=== PATIENT | male | born 1940 | race Caucasian/White ===

== ENCOUNTER 2018-05-26 07:55 | Observation (INO) ==
--- NOTE | 2018-05-26 08:32 | ED ---
HPI General Chief Complaint: Abdominal Pain Stated Complaint: Chest Pain x2wks on/off Hx RH Time Seen by Provider: 05/26/18 08:05 History of Present Illness HPI narrative: Is a 77-year-old male with a history of Sjogren's, rheumatoid arthritis, chronic pancreatitis, coronary artery disease, presents today with complaints of epigastric and chest pain on and off times 2 weeks. Patient states is been coming and going for the last 2 weeks. He reports associated nausea. He reports that the pain feels similar to the pain that he has with his pancreatitis. He reports some dyspnea. There is some chills with no fever. He denies any diaphoresis. He works as a [employer] and states that it seems to be worse when he is active. Related Data Home Medications Medication Instructions Recorded Confirmed allopurinol 100 mg PO DAILY 05/26/18 05/26/18 folic acid 1 mg PO DAILY 05/26/18 05/26/18 [id number] [Creon] 3 cap PO TID 05/26/18 05/26/18 losartan [Cozaar] 100 mg PO DAILY 05/26/18 05/26/18 methotrexate (PF) mg SUBCUT QWEEK 05/26/18 oxycodone 20 mg PO Q4-6H PRN 05/26/18 05/26/18 Allergies Allergy/AdvReac Type Severity Reaction Status Date / Time antibiotics Allergy Abdominal Uncoded 05/26/18 08:38 Pain Review of Systems ROS: all other systems reviewed are negative Constitutional Reports chills and Denies fever(s) Eyes Reports dry eyes (From Sjogren's) ENT Reports dry mouth and Denies sore throat Cardiovascular Reports chest pain (Lower chest bilaterally), Denies chest pain with activity and Denies palpitations Respiratory Denies chest congestion, Denies cough and Reports dyspnea Gastrointestinal Reports abdominal pain (Epigastric), Reports nausea and Denies vomiting Genitourinary Reports system reviewed and no additional complaints, except as docu Musculoskeletal Reports back pain and Reports other (Chronic pain from rheumatoid arthritis) Neurologic Reports system reviewed and no additional complaints, except as docu [facility] Medical History Medical History GERD (gastroesophageal reflux disease) (Acute) Hypertension (Acute) Myocardial infarct, old (Acute) Panarteritis (Acute) RA (rheumatoid arthritis) (Acute) Skin cancer (Acute) Surgical History Surgical History H/O neck surgery (Acute) Hx of cholecystectomy (Acute) Social History Social History Substance History: No History of Abuse Smoking Status: Former smoker How Often Do You Have a Drink Containing Alcohol: Never Recent Travel in [facility] [place] within the Last 8 Weeks: No Recent Out of Country Travel within the Last 8 Weeks: No Immunization History Tetanus Immunization: <5 Years Hx Influenza Vaccine This Season: No Exam Narrative Exam Narrative: GENERAL: Well-developed well-nourished male in no acute respiratory distress. SKIN: Focused skin assessment warm/dry. HEAD: Atraumatic. Normocephalic. EYES: Pupils equal and round. No scleral icterus. No injection or drainage. ENT: No nasal bleeding or discharge. Mucous membranes pink and moist. NECK: Trachea midline. Supple. CARDIOVASCULAR: Regular rate and rhythm. No murmur appreciated. RESPIRATORY: No accessory muscle use. Clear to auscultation. Breath sounds equal bilaterally. GASTROINTESTINAL: Abdomen soft, nondistended. Patient does have tenderness in his epigastrium. There is no rebound. MUSCULOSKELETAL: No obvious deformities. No clubbing. No cyanosis. No edema. NEUROLOGICAL: Awake and alert. No obvious cranial nerve deficits. Motor grossly within normal limits. Normal speech. Course Initial Documented Vital Signs Temperature 98.7 F 05/26/18 07:58 Pulse Rate 96 H 05/26/18 07:58 Respiratory Rate 18 05/26/18 07:58 Blood Pressure 170/94 H 05/26/18 07:58 Pulse Oximetry 99 05/26/18 07:58 Last Documented Vital Signs Temperature 98.7 F 05/26/18 07:58 Pulse Rate 81 05/26/18 10:46 Respiratory Rate 18 05/26/18 10:46 Blood Pressure 169/88 H 05/26/18 10:46 Pulse Oximetry 96 05/26/18 09:45 Medical Decision Making [facility] Narrative Medical decision making narrative: 77-year-old male history of chronic pancreatitis, Sjogren's disease, rheumatoid arthritis, presents today with complaints of abdominal pain and lower chest pain. Patient has an elevated lipase consistent with early pancreatitis. Cardiac enzymes are within normal limits. EKG showed no evidence of acute ST elevation or depression. The patient will be admitted for IV fluids and bowel rest. Case was discussed with Dr. Jaya Fernandez, covering for Dr. Jignesh Srivastava, patient's primary physician physician. Medical Screen Exam Complete: Yes Emergency Medical Condition: Yes Differential Diagnosis Differential Diagnosis: Pancreatitis versus ACS versus rheumatoid arthritis. Lab Data Result diagrams: 05/26/18 08:53 05/26/18 08:53 Lab Results 05/26/18 05/26/18 05/26/18 Range/Units 08:53 08:53 08:53 CBC w Diff Auto diff final WBC 10.2 (4.0-11.0) th/mm3 RBC 4.14 L (4.50-5.90) mil/mm3 Hgb 14.4 (13.0-17.0) gm/dL Hct 42.3 (39.0-51.0) % MCV 102.3 H (80.0-100.0) fL MCH 34.9 H (27.0-34.0) pg MCHC 34.1 (32.0-36.0) % RDW 12.9 (11.6-17.2) % Plt Count 177 (150-450) th/mm3 MPV 7.8 (7.0-11.0) fL Neut % (Auto) 56.5 (16.0-70.0) % Lymph % (Auto) 23.3 (9.0-44.0) % [place] % (Auto) 13.9 H (0.0-8.0) % Eos % (Auto) 2.5 (0.0-4.0) % Baso % (Auto) 3.8 H (0.0-2.0) % Neut # (Auto) 5.7 (1.8-7.7) th/mm3 Lymph # (Auto) 2.4 (1.0-4.8) th/mm3 [place] # (Auto) 1.4 H (0.0-0.9) th/mm3 Eos # (Auto) 0.3 (0.0-0.4) th/mm3 Baso # (Auto) 0.4 H (0.0-0.2) th/mm3 WBC Differential . Differential Comment . PT 10.0 (9.8-11.6) sec INR 1.0 Ratio APTT 24.7 (24.3-30.1) sec Sodium 136 (136-145) meq/L Potassium 3.6 (3.5-5.1) meq/L Chloride 99 (98-107) meq/L Carbon Dioxide 27.6 (21.0-32.0) meq/L Anion Gap 9 (5-15) meq/L BUN 12 (7-18) mg/dL Creatinine 1.10 (0.60-1.30) mg/dL Estimated GFR 65 L (>89) mL/min Random Glucose 140 H (74-106) mg/dL Calcium 8.0 L (8.5-10.1) mg/dL Total Bilirubin 0.7 (0.2-1.0) mg/dL AST 28 (15-37) U/L ALT 51 (12-78) U/L Alkaline Phosphatase 52 (45-117) U/L Total Creatine Kinase 118 (39-308) U/L CK-MB (CK-2) 1.6 (0.5-3.6) ng/mL Troponin I Less than 0.02 L (0.02-0.05) ng/mL Total Protein 7.6 (6.4-8.2) g/dL Albumin 3.3 L (3.4-5.0) g/dL Lipase 427 H (73-393) U/L Ur Collection Type Urine Color (Yellw/Straw) Urine Clarity (Clear) Urine pH (5.0-8.5) Ur Specific [place] (1.002-1.035) Urine Protein (Neg-Trace) mg/dL Urine Glucose (UA) (Negative) mg/dL Urine Ketones (Negative) mg/dL Urine Occult Blood (Negative) Urine Nitrate (Negative) Urine Bilirubin (Negative) Urine Urobilinogen (Less than 2) mg/dL Ur Leukocyte Esterase (Negative) Urine WBC (0-5) /hpf Ur Squamous Epith Cells (0-5) /hpf Calcium Oxalate Crystal (None) /hpf Urine Mucus (Occasional) /lpf Micro UA Comment Ur Microscopic Review Urine Culture Comments Urine Collection Time hours 05/26/18 Range/Units 09:49 CBC w Diff WBC (4.0-11.0) th/mm3 RBC (4.50-5.90) mil/mm3 Hgb (13.0-17.0) gm/dL Hct (39.0-51.0) % MCV (80.0-100.0) fL MCH (27.0-34.0) pg MCHC (32.0-36.0) % RDW (11.6-17.2) % Plt Count (150-450) th/mm3 MPV (7.0-11.0) fL Neut % (Auto) (16.0-70.0) % Lymph % (Auto) (9.0-44.0) % [place] % (Auto) (0.0-8.0) % Eos % (Auto) (0.0-4.0) % Baso % (Auto) (0.0-2.0) % Neut # (Auto) (1.8-7.7) th/mm3 Lymph # (Auto) (1.0-4.8) th/mm3 [place] # (Auto) (0.0-0.9) th/mm3 Eos # (Auto) (0.0-0.4) th/mm3 Baso # (Auto) (0.0-0.2) th/mm3 WBC Differential Differential Comment PT (9.8-11.6) sec INR Ratio APTT (24.3-30.1) sec Sodium (136-145) meq/L Potassium (3.5-5.1) meq/L Chloride (98-107) meq/L Carbon Dioxide (21.0-32.0) meq/L Anion Gap (5-15) meq/L BUN (7-18) mg/dL Creatinine (0.60-1.30) mg/dL Estimated GFR (>89) mL/min Random Glucose (74-106) mg/dL Calcium (8.5-10.1) mg/dL Total Bilirubin (0.2-1.0) mg/dL AST (15-37) U/L ALT (12-78) U/L Alkaline Phosphatase (45-117) U/L Total Creatine Kinase (39-308) U/L CK-MB (CK-2) (0.5-3.6) ng/mL Troponin I (0.02-0.05) ng/mL Total Protein (6.4-8.2) g/dL Albumin (3.4-5.0) g/dL Lipase (73-393) U/L Ur Collection Type Clean catch Urine Color Yellow (Yellw/Straw) Urine Clarity Clear (Clear) Urine pH 6.0 (5.0-8.5) Ur Specific [place] 1.020 (1.002-1.035) Urine Protein Negative (Neg-Trace) mg/dL Urine Glucose (UA) 100 H (Negative) mg/dL Urine Ketones Negative (Negative) mg/dL Urine Occult Blood Negative (Negative) Urine Nitrate Negative (Negative) Urine Bilirubin Negative (Negative) Urine Urobilinogen 0.2 (Less than 2) mg/dL Ur Leukocyte Esterase Negative (Negative) Urine WBC 0-5 (0-5) /hpf Ur Squamous Epith Cells 0-5 (0-5) /hpf Calcium Oxalate Crystal Few H (None) /hpf Urine Mucus Moderate H (Occasional) /lpf Micro UA Comment Culture not ind Ur Microscopic Review Microscopic reviewed Urine Culture Comments Culture not ind Urine Collection Time 949 hours Imaging Data Radiologist's impression: Chest X-Ray 05/26/18 08:42 CONCLUSION: Compensated cardiomegaly. Discharge Plan Discharge Disposition Patient Disposition: 30 Still Patient Discharge Details Diagnosis: Pancreatitis, Rheumatoid arthritis, History of Sjogren's disease Physicians Team ED Provider: Rodriguez Guerin Primary Care Provider: Jignesh Bailey Rxs /Orders / Referrals /Forms Prescriptions: No Action allopurinol 100 mg Tablet 100 mg PO DAILY RF: 0 folic acid 1 mg Tablet 1 mg PO DAILY RF: 0 losartan [Cozaar] 100 mg Tablet 100 mg PO DAILY RF: 0 oxycodone 20 mg Tablet 20 mg PO Q4-6H PRN (Reason: Pain) RF: 0 methotrexate (PF) 30 mg/0.6 mL Auto-Injector SUBCUT QWEEK RF: 0 [id number] [Creon] 24,000-76,000 -120,000 unit Capsule,Delayed Release(Dr/Ec) 3 cap PO TID RF: 0 Discharge Interventions Interventions: Vital Signs Last Done: 05/26/18 10:46 Status ED Status: With Doctor
[2018-05-26] MEDS ORDERED: HYDROmorphone PF Inj 2 MG/ML Vial IV.PUSH ONE ×2 (08:42→12:19)
[2018-05-26] MEDS ORDERED: Sod Chloride 0.9% Inj 1,000 ML IV.CONT SCH (08:45)
[2018-05-26 09:02] LABS: Baso # (Auto) 0.4 th/mm3 (0.0-0.2); Baso % (Auto) 3.8 % (0.0-2.0); Eos # (Auto) 0.3 th/mm3 (0.0-0.4); Eos % (Auto) 2.5 % (0.0-4.0); Hematocrit 42.3 % (39.0-51.0); Hemoglobin 14.4 gm/dL (13.0-17.0); Lymph # (Auto) 2.4 th/mm3 (1.0-4.8); Lymph % (Auto) 23.3 % (9.0-44.0); Mean Corpuscular HGB Conc 34.1 % (32.0-36.0); Mean Corpuscular Hemoglobin 34.9 pg (27.0-34.0); Mean Corpuscular Volume 102.3 fL (80.0-100.0); Mean Platelet Volume 7.8 fL (7.0-11.0); Mono # (Auto) 1.4 th/mm3 (0.0-0.9); Mono % (Auto) 13.9 % (0.0-8.0); Neut # (Auto) 5.7 th/mm3 (1.8-7.7); Neut % (Auto) 56.5 % (16.0-70.0); Platelet Count 177 th/mm3 (150-450); Red Blood Count 4.14 mil/mm3 (4.50-5.90); Red Cell Distribution Width 12.9 % (11.6-17.2); White Blood Count 10.2 th/mm3 (4.0-11.0)
[2018-05-26 09:10] LABS: Chloride 99 meq/L (98-107); Potassium 3.6 meq/L (3.5-5.1); Sodium 136 meq/L (136-145)
[2018-05-26 09:14] LABS: Activated Partial Thrombo Time 24.7 sec (24.3-30.1); Albumin 3.3 g/dL (3.4-5.0); Anion Gap 9 meq/L (5-15); Blood Urea Nitrogen 12 mg/dL (7-18); Carbon Dioxide 27.6 meq/L (21.0-32.0); Glucose,Random 140 mg/dL (74-106); Lipase 427 U/L (73-393)
[2018-05-26 09:17] LABS: Alanine Aminotransferase 51 U/L (12-78); Aspartate Aminotransferase 28 U/L (15-37); Glomerular Filtration Rate 65 mL/min (>89)
[2018-05-26 09:18] LABS: Total Protein 7.6 g/dL (6.4-8.2)
[2018-05-26 09:19] LABS: Creatine Kinase 118 U/L (39-308)
[2018-05-26 09:20] LABS: Alkaline Phosphatase 52 U/L (45-117)
[2018-05-26 09:54] LABS: Creatine Kinase MB 1.6 ng/mL (0.5-3.6)
[2018-05-26 09:55] LABS: Bilirubin,Urine Negative (Negative); Clarity,Urine Clear (Clear); Color,Urine Yellow (Yellw/Straw); Glucose,Urine (UA) 100 mg/dL (Negative); Leukocyte Esterase,Urine Negative (Negative); Nitrite,Urine Negative (Negative); Urobilinogen,Urine 0.2 mg/dL (Less than 2)
--- NOTE | 2018-05-26 09:55 | XR ---
EXAM DATE: 05/26/2018 8:42 AM EDT AGE/SEX: 77 years / Male INDICATIONS: Chest pain CLINICAL DATA: This is the patient's initial encounter. Patient reports that signs and symptoms have been present for 1 day and indicates a pain score of 7/10. MEDICAL/SURGICAL HISTORY: Pancreatitis. None. COMPARISON: No prior exams available for comparison. FINDINGS: Mild compensated cardiomegaly without overt congestive failure or pneumothorax. No pleural effusion. Mild degenerative changes about both shoulders. CONCLUSION: Compensated cardiomegaly. Electronically signed by: Nael Rowe MD 05/26/2018 9:54 AM EDT
[2018-05-26 10:14] LABS: Collection Time,Urine 949 hours
[2018-05-26 10:15] LABS: Calcium Oxalate Crystals,Urine Few /hpf; Mucus,Urine Moderate /lpf (Occasional); Squamous Epithelial Cell,Urine 0-5 /hpf (0-5); WBC,Urine 0-5 /hpf (0-5)
--- NOTE | 2018-05-26 12:50 | P.HP ---
History of Present Illness Service: [facility] adult med Primary Care Physician: Jignesh Bailey MD Chief Complaint: abd pain, nausea History of Present Illness: Is a 77-year-old male with a history of Sjogren's, rheumatoid arthritis, chronic pancreatitis, coronary artery disease, presents today with complaints of epigastric pain on and off times 2 weeks. Patient states is been coming and going for the last 2 weeks. It is noted that ER documentation included chest pain however patient frankly and specifically denies any chest pain. When asked to demonstrate the area where pain occurs, he points to his epigastric area and states he has had occasional radiation to his mid back which is typical of his previous pancreatitis attacks. He does have history of somewhat atypical chest pain for which he takes isosorbide daily apparently. He reports associated nausea. He reports that the pain feels similar to the pain that he has with his pancreatitis. He reports some dyspnea when pain is severe. There is some chills with no fever. He denies any diaphoresis. He works as a [employer] and states that it seems to be worse when he is active. Initial evaluation noted for slightly elevated lipase in the mid 400s. - Diagnosis (1) Pancreatitis (2) Rheumatoid arthritis (3) GERD (gastroesophageal reflux disease) (4) Hypertension Review of Systems Constitutional: Reports anorexia, Reports fatigue Ears, Nose, Mouth, and Throat: Denies abnormal hearing, Denies bleeding gums, Denies bad breath, Denies change in voice, Denies dental pain, Denies difficulty swallowing, Denies dizziness, Denies dry mouth, Denies ear discharge , Denies ear pain, Denies facial pain, Denies headache(s), Denies hearing loss, Denies hoarseness, Denies lip swelling, Denies nosebleed, Denies mouth lesions, Denies mouth pain, Denies nasal congestion, Denies nasal discharge, Denies nasal obstruction, Denies nasal trauma, Denies neck lump, Denies neck pain, Denies nose pain, Denies pain with swallowing, Denies poor balance, Denies post nasal drip, Denies ringing in the ears, Denies sinus pain, Denies sinus pressure , Denies sore throat, Denies throat swelling, Denies tongue swelling, Denies other Cardiovascular: Reports shortness of breath, Denies chest pain, Denies chest pain at rest, Denies chest pain with activity, Denies excessive sweating, Denies fainting, Denies fast heart rate, Denies foot swelling, Denies generalized swelling, Denies irregular heart rhythm, Denies leg pain with activity, Denies leg sores, Denies leg swelling, Denies lightheadedness, Denies radiating jaw, neck or arm pain, Denies rapid, pounding, or irregular heartbeat , Denies shortness of breath with activity, Denies shortness of breath when lying down, Denies shortness of breath causing sudden awakening, Denies slow heart rate, Denies other Respiratory: Reports shortness of breath, Denies change in phlegm color, Denies chest congestion, Denies cough, Denies coughing up blood, Denies excessive phlegm production, Denies pain on inspiration, Denies pain with cough, Denies shortness of breath with activity, Denies snoring, Denies stridor, Denies wheezing, Denies other Gastrointestinal: Reports abdominal pain, Reports bloating, Reports heartburn, Reports nausea, Denies belching, Denies black, tarry stools, Denies bright, red blood in stools, Denies change in bowel habits, Denies constant urge to pass stool, Denies change in stools, Denies coffee ground vomit, Denies constipation , Denies cramping, Denies difficulty swallowing, Denies excessive passing of gas , Denies feeling full early, Denies incontinent of stools, Denies loose stools, Denies pain with swallowing, Denies vomiting, Denies vomiting blood, Denies other Musculoskeletal: Reports back pain, Reports joint pain Neurologic: Denies abnormal hearing, Denies abnormal movements, Denies abnormal speech, Denies abnormal walking, Denies behavioral changes, Denies burning sensations, Denies confusion, Denies dizziness, Denies fainting, Denies frequent falls, Denies headache(s), Denies lack of coordination, Denies localized weakness, Denies loss of vision, Denies memory loss, Denies numbness, Denies other visual disturbances, Denies radiating pain, Denies restless legs, Denies convulsions, Denies seizure-like activity, Denies sensory deficit, Denies tingling, Denies tingling/numbness/burning sensations, Denies tremor(s), Denies unsteadiness, Denies weakness, Denies other Psychiatric: Reports abnormal sleep pattern, Reports anxiety, Denies behavioral changes, Denies change in appetite, Denies change in sex drive, Denies confusion , Denies depression, Denies difficulty concentrating, Denies hearing things others do not hear, Denies hopelessness, Denies irritability, Denies lack of enjoyment, Denies memory loss, Denies mood swings, Denies panic attacks, Denies paranoia, Denies seeing things others do not see, Denies sensing things others do not sense, Denies tactile hallucinations, Denies thoughts of hurting/killing others, Denies thoughts of hurting/killing yourself, Denies other PMFSH - History History Provided By: Patient - Medical History Medical History: Medical History (Last Updated 05/26/18 @ 16:56 by Jaya Fernandez MD, PhD) DM2 (diabetes mellitus, type 2) (Acute) Pancreatitis, chronic (Acute) Hypertension (Acute) GERD (gastroesophageal reflux disease) (Acute) RA (rheumatoid arthritis) (Acute) Myocardial infarct, old Skin cancer - Surgical History Surgical History: Surgical History (Last Updated 05/26/18 @ 16:58 by Jaya Fernandez MD, PhD) H/O neck surgery H/O sinus surgery H/O vasectomy History of liver biopsy Hx of cholecystectomy S/P laser trabeculoplasty of eye - Family History Family History: Family History (Last Updated 05/26/18 @ 16:59 by Jaya Fernandez MD, PhD) Son Diabetes Father Lung cancer Mother Ovarian cancer - Social History I have reviewed the patient's Social History: Yes - Tobacco History Second Hand Smoke Exposure: No Tobacco Use In Past 30 Days: No Smoking Status: Former smoker Tobacco Type: Cigarettes Number of Pack Years (if former smoker): 25 Smoking End Date: appx 1984 - Alcohol History How Often Do You Have a Drink Containing Alcohol: Never - Substance Use History Substance History: No History of Abuse - Travel History Recent Travel in the [place] Within the Last 8 Weeks: No Recent Travel Out of the Country Within the Last 8 Weeks: No - Immunization History Tetanus Immunization: <5 Years Hx Influenza Vaccine This Season: No Medications and Allergies Active Medications: Active Medications Sodium Chloride (Ns Inj) 1,000 mls @ 125 mls/hr IV.CONT .Q8H SURAJ Stop: 05/26/18 16:44 Last Admin: 05/26/18 09:07 Dose: 125 mls/hr Sodium Chloride (Ns Flush) 2 ml IV.FLUSH PRN PRN PRN Reason: FLUSH AFTER USING IV ACCESS Allergies Allergy/AdvReac Type Severity Reaction Status Date / Time antibiotics Allergy Abdominal Uncoded 05/26/18 08:38 Pain Home Medications Medication Instructions Recorded Confirmed Type adalimumab [Humira Pen] 40 mg SUBCUT WEEKLY 05/26/18 05/26/18 History allopurinol 100 mg PO DAILY 05/26/18 05/26/18 History alprazolam 0.5 mg PO DAILY 05/26/18 05/26/18 History cholecalciferol (vitamin D3) 1 unit PO DAILY 05/26/18 05/26/18 History [Vitamin D3] cyanocobalamin-cobamamide [B12] 100 mcg SUBLINGUAL DAILY 05/26/18 05/26/18 History cyclobenzaprine 10 mg PO TID PRN 05/26/18 05/26/18 History dicyclomine 10 mg PO TID 05/26/18 05/26/18 History folic acid 1 mg PO DAILY 05/26/18 05/26/18 History isosorbide mononitrate 30 mg PO DAILY 05/26/18 05/26/18 History [id number]-dunukrj [Creon] 3 cap PO TID 05/26/18 05/26/18 History losartan [Cozaar] 100 mg PO DAILY 05/26/18 05/26/18 History loteprednol etabonate [Lotemax] 1 drp RIGHT EYE DAILY 05/26/18 05/26/18 History methotrexate (PF) 25 mg SUBCUT QWEEK 05/26/18 05/26/18 History morphine 1 tab PO TID 05/26/18 05/26/18 History nitroglycerin [Nitrostat] 0.4 mg SUBLINGUAL Q5-15M 05/26/18 05/26/18 History omega [id number]-fish oil [Fish Oil] 1,000 mg PO DAILY 05/26/18 05/26/18 History oxycodone 20 mg PO Q4-6H PRN 05/26/18 05/26/18 History oxycodone 20 mg PO TID PRN 05/26/18 05/26/18 History ranitidine HCl 150 mg PO DAILY 05/26/18 05/26/18 History sucralfate [Carafate] 1 g PO TID 05/26/18 05/26/18 History Exam Vital signs: Vital Signs 05/26/18 07:58 05/26/18 08:21 05/26/18 09:39 Temperature 98.7 F Pulse Rate 96 H 95 H 79 Respiratory Rate 18 16 12 Blood Pressure 170/94 H 204/99 H 144/81 H Pulse Oximetry 99 95 96 05/26/18 09:45 05/26/18 10:46 Temperature Pulse Rate 81 Respiratory Rate 18 Blood Pressure 169/88 H Pulse Oximetry 96 Intake & Output 05/25/18 05/26/18 05/26/18 18:59 06:59 18:59 Weight 113 kg Narrative: GENERAL: NAD, A/O, lying in exam bed SKIN: Warm and dry. HEAD: Atraumatic. Normocephalic. EYES: Pupils equal and round. No scleral icterus. No injection or drainage. ENT: No nasal bleeding or discharge. Mucous membranes pink and moist. NECK: Trachea midline. No JVD. CARDIOVASCULAR: Regular rate and rhythm. Distant sounds, no signif murmur appreciated RESPIRATORY: No accessory muscle use. Clear to auscultation. Breath sounds equal bilaterally. GASTROINTESTINAL: Abdomen soft, slightly distended, mod ttp in epigastrium and RUQ. No rebound. Hepatic and splenic margins not palpable. MUSCULOSKELETAL: Extremities without clubbing, cyanosis, or edema. No obvious deformities. NEUROLOGICAL: Awake and alert. No obvious cranial nerve deficits. Motor grossly within normal limits. Five out of 5 muscle strength in the arms and legs. Normal speech. PSYCHIATRIC: Appropriate mood and affect; insight and judgment normal. Results - Labs CBC & Chem 7: 05/26/18 08:53 05/26/18 08:53 Labs: Laboratory Results - last 24 hr 05/26/18 05/26/18 05/26/18 08:53 08:53 08:53 CBC w Diff Auto diff final WBC 10.2 RBC 4.14 L Hgb 14.4 Hct 42.3 MCV 102.3 H MCH 34.9 H MCHC 34.1 RDW 12.9 Plt Count 177 MPV 7.8 Neut % (Auto) 56.5 Lymph % (Auto) 23.3 [place] % (Auto) 13.9 H Eos % (Auto) 2.5 Baso % (Auto) 3.8 H Neut # (Auto) 5.7 Lymph # (Auto) 2.4 [place] # (Auto) 1.4 H Eos # (Auto) 0.3 Baso # (Auto) 0.4 H WBC Differential . Differential Comment . PT 10.0 INR 1.0 APTT 24.7 Sodium 136 Potassium 3.6 Chloride 99 Carbon Dioxide 27.6 Anion Gap 9 BUN 12 Creatinine 1.10 Estimated GFR 65 L Random Glucose 140 H Calcium 8.0 L Total Bilirubin 0.7 AST 28 ALT 51 Alkaline Phosphatase 52 Total Creatine Kinase 118 CK-MB (CK-2) 1.6 Troponin I Less than 0.02 L Total Protein 7.6 Albumin 3.3 L Lipase 427 H Ur Collection Type Urine Color Urine Clarity Urine pH Ur Specific [place] Urine Protein Urine Glucose (UA) Urine Ketones Urine Occult Blood Urine Nitrate Urine Bilirubin Urine Urobilinogen Ur Leukocyte Esterase Urine WBC Ur Squamous Epith Cells Calcium Oxalate Crystal Urine Mucus Micro UA Comment Ur Microscopic Review Urine Culture Comments Urine Collection Time 05/26/18 09:49 CBC w Diff WBC RBC Hgb Hct MCV MCH MCHC RDW Plt Count MPV Neut % (Auto) Lymph % (Auto) [place] % (Auto) Eos % (Auto) Baso % (Auto) Neut # (Auto) Lymph # (Auto) [place] # (Auto) Eos # (Auto) Baso # (Auto) WBC Differential Differential Comment PT INR APTT Sodium Potassium Chloride Carbon Dioxide Anion Gap BUN Creatinine Estimated GFR Random Glucose Calcium Total Bilirubin AST ALT Alkaline Phosphatase Total Creatine Kinase CK-MB (CK-2) Troponin I Total Protein Albumin Lipase Ur Collection Type Clean catch Urine Color Yellow Urine Clarity Clear Urine pH 6.0 Ur Specific [place] 1.020 Urine Protein Negative Urine Glucose (UA) 100 H Urine Ketones Negative Urine Occult Blood Negative Urine Nitrate Negative Urine Bilirubin Negative Urine Urobilinogen 0.2 Ur Leukocyte Esterase Negative Urine WBC 0-5 Ur Squamous Epith Cells 0-5 Calcium Oxalate Crystal Few H Urine Mucus Moderate H Micro UA Comment Culture not ind Ur Microscopic Review Microscopic reviewed Urine Culture Comments Culture not ind Urine Collection Time 949 - Imaging Impressions Chest X-Ray 05/26/18 08:42 CONCLUSION: Compensated cardiomegaly. Caprini VTE Risk Assessment Caprini VTE Risk Assessment: Moderate/High Risk (score >= 2) Caprini Risk Assessment Model: Point Value = 1 Point Value = 2 Point Value = 3 Point Value = 5 Age 41-60 Minor surgery BMI > 25 kg/m2 Swollen legs Varicose veins or History of unexplained or recurrent spontaneous Oral contraceptives or hormone replacement Sepsis (< 1 month) Serious lung disease, including pneumonia (< 1 month) Abnormal pulmonary function Acute myocardial infarction Congestive heart failure (< 1 month) History of inflammatory bowel disease Medical patient at bed rest Age 61-74 Arthroscopic surgery Major open surgery (> 45 min) Laparoscopic surgery (> 45 min) Malignancy Confined to bed (> 72 hours) Immobilizing plaster cast Central venous access Age >= 75 History of VTE Family history of VTE Factor V Leiden Prothrombin [id number] Lupus anticoagulant Anticardiolipin antibodies Elevated serum homocysteine Heparin-induced thrombocytopenia Other congenital or acquired thrombophilia Stroke (< 1 month) Elective arthroplasty Hip, pelvis, or leg fracture Acute spinal cord injury (< 1 month) Prophylaxis Regimen: Total Risk Factor Score Risk Level Prophylaxis Regimen 0-1 Low Early ambulation 2 Moderate Order ONE of the following: *Sequential Compression Device (SCD) *Heparin 5000 units SQ BID 3-4 Higher Order ONE of the following medications: *Heparin 5000 units SQ TID *Enoxaparin/Lovenox 40 mg SQ daily (WT < 150 kg, CrCl > 30 mL/min) *Enoxaparin/Lovenox 30 mg SQ daily (WT < 150 kg, CrCl > 10-29 mL/min) *Enoxaparin/Lovenox 30 mg SQ BID (WT < 150 kg, CrCl > 30 mL/min) AND/OR *Sequential Compression Device (SCD) 5 or more Highest Order ONE of the following medications: *Heparin 5000 units SQ TID (Preferred with Epidurals) *Enoxaparin/Lovenox 40 mg SQ daily (WT < 150 kg, CrCl > 30 mL/min) *Enoxaparin/Lovenox 30 mg SQ daily (WT < 150 kg, CrCl > 10-29 mL/min) *Enoxaparin/Lovenox 30 mg SQ BID (WT < 150 kg, CrCl > 30 mL/min) AND *Sequential Compression Device (SCD) Assessment and Plan - Assessment (1) Pancreatitis Code(s): K85.90 - Acute pancreatitis without necrosis or infection, unspecified Status: Acute Plan: appears to be acute exac of chronic problem. Will try IVF, bowel rest, pain meds. Hopefully will clear over next 24 hrs. If not improving, will check imaging, involve GI (2) Rheumatoid arthritis Code(s): M06.9 - Rheumatoid arthritis, unspecified Status: Chronic Plan: continue outpt tx at d/c (3) GERD (gastroesophageal reflux disease) Code(s): K21.9 - Gastro-esophageal reflux disease without esophagitis Status: Acute Plan: PPI (4) Hypertension Code(s): I10 - Essential (primary) hypertension Status: Acute Plan: outpt meds as tolerated PRN meds as needed for elevation - Plan Code Status: full Discussed Condition With: pt, his and ER provider (1) Pancreatitis Qualifiers: Chronicity: chronic Pancreatitis type: unspecified pancreatitis type Qualified Code(s): K86.1 - Other chronic pancreatitis (2) Rheumatoid arthritis Qualifiers: Rheumatoid arthritis location: unspecified site Rheumatoid factor presence: unspecified presence Qualified Code(s): M06.9 - Rheumatoid arthritis, unspecified
[2018-05-26] MEDS ORDERED: Morphine Inj 4 MG/ML Vial IV.PUSH PRN (13:15)
[2018-05-26] MEDS ORDERED: Pantoprazole Inj 40 MG Vial IV.PUSH SCH (14:00)
[2018-05-26 14:54] VITALS: RESP 20
[2018-05-26] MEDS ORDERED: Temazepam 15 MG Capsule PO PRN (16:49)
[2018-05-26] MEDS ORDERED: HYDROmorphone PF Inj 0.5 MG/0.5 ML Syringe IV.PUSH PRN (17:07)
[2018-05-26] MEDS ORDERED: HYDROmorphone PF Inj 2 MG/ML Vial IV.PUSH PRN (17:30)
[2018-05-26] MEDS ORDERED: Sucralfate Liq 1 GM/10 ML UDC PO SCH (18:00)
[2018-05-26] MEDS ORDERED: Lipase/Protease/Amylase 24/76/120 DR Capsule PO SCH (18:00)
[2018-05-26 20:14] VITALS: PULSE 91; O2SAT 93
[2018-05-26] MEDS: HYDROmorphone PF Inj 2 MG/ML Vial IV.PUSH PRN (23:27)
[2018-05-27 00:08] VITALS: BP 185/86; TEMP 100.4
[2018-05-27] MEDS: HYDROmorphone PF Inj 2 MG/ML Vial IV.PUSH PRN (06:03)
[2018-05-27] MEDS ORDERED: Isosorbide Mononitrate 30 MG ER 24HR Tablet (Imdur) PO SCH (07:00)
--- NOTE | 2018-05-27 07:04 | P.PN ---
Subjective Interval history: Patient reports that he feels much better. No more nausea. Abdominal pain has significantly decreased. He has been walking about the room independently. Said he actually had a bowel movement which helped his abdominal pain diminished as well. Regarding the low-grade fever, he reports no increased cough no shortness of breath no dysuria abdominal pain is decreased as noted above. He does not have any notable open wounds and overall says he feels much better. Physical Exam Vital signs: Vital Signs 05/26/18 07:58 05/26/18 08:21 05/26/18 09:39 Temperature 98.7 F Pulse Rate 96 H 95 H 79 Respiratory Rate 18 16 12 Blood Pressure 170/94 H 204/99 H 144/81 H Pulse Oximetry 99 95 96 05/26/18 09:45 05/26/18 10:46 05/26/18 12:55 Temperature 97 F L Pulse Rate 81 69 Respiratory Rate 18 20 Blood Pressure 169/88 H 172/84 H Pulse Oximetry 96 95 05/26/18 16:00 05/26/18 16:18 05/26/18 16:40 Temperature 98.2 F Pulse Rate 74 78 Respiratory Rate 20 Blood Pressure 196/93 H 190/84 H Pulse Oximetry 94 L 95 05/26/18 20:00 05/26/18 20:13 05/27/18 00:00 Temperature 100.7 F H 100.4 F H Pulse Rate 91 H 91 H Respiratory Rate 20 20 Blood Pressure 183/86 H 185/86 H Pulse Oximetry 94 L 93 L 93 L Intake & Output 05/26/18 05/26/18 05/27/18 06:59 18:59 06:59 Intake Total 950 / 950 1000 / 1000 Balance 950 / 950 1000 / 1000 Weight 113 kg 113.2 kg Intake: IV 950 / 950 1000 / 1000 NS + KCl 20 mEq Inj 1,000 ML @ 1000 / 1000 84 mls/hr IV.CONT .[id number] SURAJ Rx#:[id number] NS Inj 1,000 ML @ 125 mls/hr IV 950 / 950 .CONT .Q8H SURAJ Rx#:[id number] Oral 0 / 0 0 / 0 Other: # Voids 1 Weight On Admission 113 kg Narrative: GENERAL: Well-developed male. Lying in bed. During my visit he stands independently from the bed and changes his shirt. He walks around the hospital room in no apparent distress actually appearing quite comfortable. Alert and oriented. SKIN: Warm and dry. HEAD: Atraumatic. Normocephalic. EYES: Pupils equal and round. No scleral icterus. No injection or drainage. ENT: No nasal bleeding or discharge. Mucous membranes pink and moist. NECK: Trachea midline. No JVD. CARDIOVASCULAR: Regular rate and rhythm. RESPIRATORY: No accessory muscle use. Clear to auscultation. Breath sounds equal bilaterally. No wheeze or crackles appreciated. GASTROINTESTINAL: Abdomen soft, non-tender, nondistended. Hepatic and splenic margins not palpable. Bowel sounds normal. MUSCULOSKELETAL: Extremities without clubbing, cyanosis, or edema. No obvious deformities. NEUROLOGICAL: Awake and alert. No obvious cranial nerve deficits. Motor grossly within normal limits. Five out of 5 muscle strength in the arms and legs. Normal speech. PSYCHIATRIC: Appropriate mood and affect; insight and judgment normal. Results - Labs CBC & Chem 7: 05/26/18 08:53 05/26/18 08:53 Laboratory Results - last 24 hr 05/26/18 05/26/18 05/26/18 08:53 08:53 08:53 CBC w Diff Auto diff final WBC 10.2 RBC 4.14 L Hgb 14.4 Hct 42.3 MCV 102.3 H MCH 34.9 H MCHC 34.1 RDW 12.9 Plt Count 177 MPV 7.8 Neut % (Auto) 56.5 Lymph % (Auto) 23.3 [place] % (Auto) 13.9 H Eos % (Auto) 2.5 Baso % (Auto) 3.8 H Neut # (Auto) 5.7 Lymph # (Auto) 2.4 [place] # (Auto) 1.4 H Eos # (Auto) 0.3 Baso # (Auto) 0.4 H WBC Differential . Differential Comment . PT 10.0 INR 1.0 APTT 24.7 Sodium 136 Potassium 3.6 Chloride 99 Carbon Dioxide 27.6 Anion Gap 9 BUN 12 Creatinine 1.10 Estimated GFR 65 L Random Glucose 140 H Calcium 8.0 L Total Bilirubin 0.7 AST 28 ALT 51 Alkaline Phosphatase 52 Total Creatine Kinase 118 CK-MB (CK-2) 1.6 Troponin I Less than 0.02 L Total Protein 7.6 Albumin 3.3 L Lipase 427 H Ur Collection Type Urine Color Urine Clarity Urine pH Ur Specific [place] Urine Protein Urine Glucose (UA) Urine Ketones Urine Occult Blood Urine Nitrate Urine Bilirubin Urine Urobilinogen Ur Leukocyte Esterase Urine WBC Ur Squamous Epith Cells Calcium Oxalate Crystal Urine Mucus Micro UA Comment Ur Microscopic Review Urine Culture Comments Urine Collection Time 05/26/18 09:49 CBC w Diff WBC RBC Hgb Hct MCV MCH MCHC RDW Plt Count MPV Neut % (Auto) Lymph % (Auto) [place] % (Auto) Eos % (Auto) Baso % (Auto) Neut # (Auto) Lymph # (Auto) [place] # (Auto) Eos # (Auto) Baso # (Auto) WBC Differential Differential Comment PT INR APTT Sodium Potassium Chloride Carbon Dioxide Anion Gap BUN Creatinine Estimated GFR Random Glucose Calcium Total Bilirubin AST ALT Alkaline Phosphatase Total Creatine Kinase CK-MB (CK-2) Troponin I Total Protein Albumin Lipase Ur Collection Type Clean catch Urine Color Yellow Urine Clarity Clear Urine pH 6.0 Ur Specific [place] 1.020 Urine Protein Negative Urine Glucose (UA) 100 H Urine Ketones Negative Urine Occult Blood Negative Urine Nitrate Negative Urine Bilirubin Negative Urine Urobilinogen 0.2 Ur Leukocyte Esterase Negative Urine WBC 0-5 Ur Squamous Epith Cells 0-5 Calcium Oxalate Crystal Few H Urine Mucus Moderate H Micro UA Comment Culture not ind Ur Microscopic Review Microscopic reviewed Urine Culture Comments Culture not ind Urine Collection Time 949 - Imaging Impressions Chest X-Ray 05/26/18 08:42 CONCLUSION: Compensated cardiomegaly. Assessment and Plan - Assessment (1) Pancreatitis Code(s): K85.90 - Acute pancreatitis without necrosis or infection, unspecified Status: Acute Plan: appears to be acute exac of chronic problem. Much improved clinically this morning after bowel rest, IV fluid and pain medications. Will advance diet to see how he does. If he tolerates this well we will likely discharge him home today. He is desirous of such discharge this morning if possible he says. (2) Rheumatoid arthritis Code(s): M06.9 - Rheumatoid arthritis, unspecified Status: Chronic Plan: continue outpt tx at d/c (3) GERD (gastroesophageal reflux disease) Code(s): K21.9 - Gastro-esophageal reflux disease without esophagitis Status: Acute Plan: Provide PPI (4) Hypertension Code(s): I10 - Essential (primary) hypertension Status: Acute Plan: outpt meds as tolerated PRN meds as needed for elevation (5) Low grade fever Code(s): R50.9 - Fever, unspecified Status: Acute Plan: Questionable etiology. Possibly from just dependent atelectasis from lying in the bed so long. He reports that he is "always been a shallow breather". He denies any increased shortness of breath, cough, urinary symptoms, open wound. His abdominal pain is much improved on exam and per his report. Provide incentive spirometry. Clinically he appears much improved from yesterday and I do not see an obvious need to initiate antibiotics at this point. - Plan Discharge Planning: Hopefully discharge home later today depending on clinical progress and how he tolerates diet. (1) Pancreatitis Qualifiers: Chronicity: chronic Pancreatitis type: unspecified pancreatitis type Qualified Code(s): K86.1 - Other chronic pancreatitis (2) Rheumatoid arthritis Qualifiers: Rheumatoid arthritis location: unspecified site Rheumatoid factor presence: unspecified presence Qualified Code(s): M06.9 - Rheumatoid arthritis, unspecified
[2018-05-27 07:14] LABS: Baso # (Auto) 0.4 th/mm3 (0.0-0.2); Baso % (Auto) 3.2 % (0.0-2.0); Eos # (Auto) 0.2 th/mm3 (0.0-0.4); Eos % (Auto) 1.7 % (0.0-4.0); Hemoglobin 16.2 gm/dL (13.0-17.0); Lymph # (Auto) 3.3 th/mm3 (1.0-4.8); Lymph % (Auto) 23.4 % (9.0-44.0); Mean Corpuscular HGB Conc 34.5 % (32.0-36.0); Mean Corpuscular Hemoglobin 35.4 pg (27.0-34.0); Mean Corpuscular Volume 102.7 fL (80.0-100.0); Mean Platelet Volume 8.9 fL (7.0-11.0); Mono # (Auto) 1.7 th/mm3 (0.0-0.9); Mono % (Auto) 12.5 % (0.0-8.0); Neut # (Auto) 8.3 th/mm3 (1.8-7.7); Neut % (Auto) 59.2 % (16.0-70.0); Platelet Count 183 th/mm3 (150-450); Red Blood Count 4.58 mil/mm3 (4.50-5.90); Red Cell Distribution Width 12.6 % (11.6-17.2); White Blood Count 13.9 th/mm3 (4.0-11.0)
[2018-05-27 07:19] LABS: Chloride 100 meq/L (98-107); Potassium 3.8 meq/L (3.5-5.1); Sodium 138 meq/L (136-145)
[2018-05-27 07:25] LABS: Albumin 3.4 g/dL (3.4-5.0); Calcium 8.1 mg/dL (8.5-10.1); Lipase 575 U/L (73-393)
[2018-05-27 07:26] LABS: Anion Gap 9 meq/L (5-15); Blood Urea Nitrogen 10 mg/dL (7-18); Carbon Dioxide 28.7 meq/L (21.0-32.0); Glucose,Random 138 mg/dL (74-106)
[2018-05-27 07:28] LABS: Alanine Aminotransferase 47 U/L (12-78); Aspartate Aminotransferase 30 U/L (15-37); Glomerular Filtration Rate 73 mL/min (>89)
[2018-05-27 07:29] LABS: Total Protein 7.8 g/dL (6.4-8.2)
[2018-05-27 07:31] LABS: Alkaline Phosphatase 51 U/L (45-117)
[2018-05-27] MEDS ORDERED: Allopurinol 100 MG Tablet PO SCH (09:00)
[2018-05-27] MEDS ORDERED: Folic Acid 1 MG Tablet PO SCH (09:00)
--- NOTE | 2018-05-27 17:14 | ECG ---
Date Performed: 05/26/2018 Time Performed: 08:09:27 PTAGE: 77 years EKG: Sinus rhythm NORMAL ECG NO PREVIOUS TRACING DOCTOR: Kenneth Graham Interpretating Date/Time 05/27/2018 17:11:01
--- NOTE | 2018-05-27 17:15 | ECG ---
Date Performed: 05/26/2018 Time Performed: 13:07:43 PTAGE: 77 years EKG: Sinus rhythm INFERIOR MYOCARDIAL INFARCTION Compared to previous tracing, inferior infarct pattern is more promin ent, likely due to lead placement differences ABNORMAL ECG PREVIOUS TRACING : 05/26/2018 08.09 DOCTOR: Kenneth Graham Interpretating Date/Time 05/27/2018 17:11:38
== END 2018-05-27 09:17 | disposition home or self-care (01) ==
LOC: PHED 07:55 → PHEDA 11:18 → INTOOBSV 11:18 → PH3 12:43
PROVIDERS: ADMIT Internal Medicine; ATTEND Internal Medicine